=== PATIENT | female | born 1935 | race Caucasian/White ===

== ENCOUNTER 2023-10-28 07:36 | Emergency (ER) | payer MEDICARE ==
[~2023-10-28] VITALS: Ht 162.6 cm; Wt 68.0 kg
[2023-10-28 09:28] LABS: BASOPHILS ABSOLUTE AUTO 0.05 K/mm3 (0.00-0.23); BASOPHILS PERCENT AUTO 0 % (0-2); EOSINOPHILS ABSOLUTE AUTO 0.03 K/mm3 (0.00-0.68); EOSINOPHILS PERCENT AUTO 0 % (0-6); Hematocrit 42.5 % (33.0-51.0); Hemoglobin 14.1 g/dL (11.5-16.0); IMMATURE GRAN ABSOLUTE AUTO 0.09 K/mm3 (0.00-0.10); IMMATURE GRAN PERCENT AUTO 1 % (0-1); LYMPHOCYTES ABSOLUTE AUTO 0.82 K/mm3 (0.84-5.20); LYMPHOCYTES PERCENT AUTO 7 % (21-46); MONOCYTES ABSOLUTE AUTO 0.54 K/mm3 (0.16-1.47); MONOCYTES PERCENT AUTO 5 % (4-13); Mean Corpuscular HGB 32.4 pg (26.0-34.0); Mean Corpuscular HGB Conc 33.2 g/dL (31.5-36.5); Mean Corpuscular Volume 98 fL (80-100); Mean Platelet Volume 10.3 fL (9.1-12.4); NEUTROPHILS ABSOLUTE AUTO 10.58 K/mm3 (1.96-9.15); NEUTROPHILS PERCENT AUTO 87 % (41-73); Platelet Count 265 K/mm3 (150-400); RDW Coefficient Variation 12.3 % (11.7-14.2); RDW Standard Deviation 44.3 fL (35.1-46.3); Red Blood Cell Count 4.35 M/mm3 (3.80-5.20); White Blood Cell Count 12.11 K/mm3 (4.00-11.30)
[2023-10-28 09:59] LABS: Bun/Creatinine Ratio 14.3 (12.0-20.0); Calcium, Blood 8.2 mg/dL (8.5-10.1); Creatinine, Blood 0.77 mg/dL (0.40-1.00); Potassium, Blood 3.9 mmol/L (3.5-5.5)
[2023-10-28 10:02] LABS: Source, Urine Clean Catch
[2023-10-28 10:06] LABS: Appearance, Urine Clear (Clear); Bilirubin, Urine Neg (Neg); Blood, Urine Neg (Neg); Color, Urine Yellow (P-Yellow); Glucose Qualitative, Urine Neg (Neg); Ketones, Urine 1+ (Neg); Leukocyte Esterase, Urine 2+ (Neg); Nitrite, Urine Neg (Neg); Protein, Urine 1+ (Neg); Urobilinogen, Urine NORM (Normal)
[2023-10-28 10:19] LABS: Hyaline Casts 0-2 /lpf (0-2)
[2023-10-28 10:20] LABS: Red Blood Cells, Urine 0-2 /hpf (0-2); Squamous Epithelial Cells Few /hpf (Few); Transitional Epithelial Cells Rare /hpf (0-Rare); White Blood Cells, Urine 0-2 /hpf (0-5)
[2023-10-28 10:33] LABS: Bacteria Many /hpf
[2023-10-29 07:30] VITALS: BP 153/86
== END 2023-10-29 09:57 | disposition home or self-care (01) ==
LOC: ER 07:36
PROVIDERS: Student in an Organized Health Care Education/Training Program
DX: R05.9 Cough, unspecified (principal); M54.50 Low back pain, unspecified; D72.829 Elevated white blood cell count, unspecified; R82.71 Bacteriuria; Z88.6 Allergy status to analgesic agent; Z79.899 Other long term (current) drug therapy; E03.9 Hypothyroidism, unspecified
CPT/HCPCS: 71046; 72100; 72170; 80048; 81001; 85025; 96374; 96375; 99284-25; A9270; J0696; J1100; J3010; J7030

== ENCOUNTER 2023-11-01 06:39 | Emergency (ER) | payer MEDICARE ==
[~2023-11-01] VITALS: Ht 165.1 cm; Wt 65.8 kg
[2023-11-01 07:23] LABS: BASOPHILS ABSOLUTE AUTO 0.01 K/mm3 (0.00-0.23); BASOPHILS PERCENT AUTO 0 % (0-2); EOSINOPHILS ABSOLUTE AUTO 0.02 K/mm3 (0.00-0.68); EOSINOPHILS PERCENT AUTO 0 % (0-6); IMMATURE GRAN ABSOLUTE AUTO 0.02 K/mm3 (0.00-0.10); IMMATURE GRAN PERCENT AUTO 0 % (0-1); LYMPHOCYTES ABSOLUTE AUTO 1.47 K/mm3 (0.84-5.20); LYMPHOCYTES PERCENT AUTO 31 % (21-46); MONOCYTES ABSOLUTE AUTO 0.35 K/mm3 (0.16-1.47); MONOCYTES PERCENT AUTO 7 % (4-13); Mean Corpuscular HGB Conc 31.6 g/dL (31.5-36.5); Mean Corpuscular Volume 104 fL (80-100); Mean Platelet Volume 10.1 fL (9.1-12.4); NEUTROPHILS ABSOLUTE AUTO 2.89 K/mm3 (1.96-9.15); NEUTROPHILS PERCENT AUTO 61 % (41-73); Platelet Count 103 K/mm3 (150-400); RDW Coefficient Variation 12.7 % (11.7-14.2); Red Blood Cell Count 1.82 M/mm3 (3.80-5.20); White Blood Cell Count 4.76 K/mm3 (4.00-11.30)
[2023-11-01 07:50] LABS: Base Excess Venous -9.8 mmol/L; PCO2 Venous 23.7 mmHg (38-42); pH Blood Venous 7.41 (7.34-7.37)
[2023-11-01 08:05] LABS: Calcium, Ionized (POC) 0.89 mmol/L (1.10-1.46); Chloride (POC) 106 mmol/L (98-108); Glucose (ISTAT POC) 164 mg/dL (70-99); Hemoglobin (POC) 11.6 g/dL (12.0-16.0); Potassium (POC) 3.2 mmol/L (3.5-5.5); Sodium (POC) 136 mmol/L (135-148); Total CO2 (POC) 18 mmol/L (21-32)
[2023-11-01 08:13] LABS: Hematocrit 40.8 % (33.0-51.0); Hemoglobin 13.1 g/dL (11.5-16.0)
[2023-11-01 08:34] LABS: International Normalized Ratio 1.19; Prothrombin Time Results 12.4 Sec (9.7-11.5)
[2023-11-01 08:40] LABS: Albumin/Globulin Ratio 0.6 (0.8-1.8); Bilirubin, Total 1.2 mg/dL (0.1-1.0); Bun/Creatinine Ratio 14.7 (12.0-20.0); Calcium, Blood 6.4 mg/dL (8.5-10.1); Creatinine, Blood 1.77 mg/dL (0.40-1.00); Globulin, Blood 3.2 g/dL (2.2-4.0); Potassium, Blood 3.4 mmol/L (3.5-5.5); Total Protein, Blood 5.2 g/dL (6.4-8.2)
[2023-11-01 09:00] LABS: Source, Urine Foley catheter
[2023-11-01 09:09] LABS: Bilirubin, Urine Neg (Neg); Blood, Urine Neg (Neg); Glucose Qualitative, Urine Neg (Neg); Ketones, Urine Neg (Neg); Leukocyte Esterase, Urine Neg (Neg); Nitrite, Urine Neg (Neg); Protein, Urine Neg (Neg); Urobilinogen, Urine NORM (Normal)
[2023-11-01 09:12] LABS: Appearance, Urine Clear (Clear); Color, Urine Yellow (P-Yellow)
[2023-11-01 11:57] LABS: Hematocrit 42.8 % (33.0-51.0); Hemoglobin 14.2 g/dL (11.5-16.0)
--- NOTE | 2023-11-01 12:13 | NUR ---
Initial palliative care consult: Reyna is an 88 year old lady who was brought in by ambulance this morning. She lives with her dtr, Jazmin and son -in-law. Per EMS report, Reyna suddenly slumped in her chair this morning after drinking some water. She was semi-unresponsive and 911 was called. Requested to visit with pt and family in ER. Pt has bilateral PEs and started vomiting coffee-ground type emesis while being evaluated in the ER. Pt is unable to be placed on a heparin gtt due to the guaiac positive emesis. Jazmin, her dtr, and DORIAN are at the bedside. Reyna slept through the visit. Jazmin reports that Reyna has a history of a prior back surgery and she takes a thyroid medication. Jazmin reports no other health history. Jazmin states that Reyna recently moved to the area and is now living with her. Jazmin is tearful. She states "I don't want my mom to suffer, but I don't want to lose her." Pt's DORIAN is also at bedside and states that they would like to have Reyna transferred to a facility who has GI and IR specialties available. Pt's DORIAN is upset by the question of code status and advanced care planning. He said "It's too soon to be talking about this." He then stated that he just recently lost his mom suddenly in the [facility] a few weeks ago. Emotional support provided by this underwriter solicitation director. Jazmin is in agreement with transfer of care to a facility who has the specialty physicians. Jazmin reports that her dtr works in [place] in an endo clinic. She is hopeful that Reyna can be transferred to [place]. Explained to Jazmin and her that staff will contact other facilities to see is anyone can accept her. Explained that this process can take some time and there is no guarantee that she can be accepted in [place]. They verbalized understanding. Jazmin confirmed Reyna's DNR status. Plan at this time is for admission and supportive care while staff contact other facilities for possible transfer. Nursing and Dr. Romero updated on conversation with family. PC to remain available to assist with advanced care planning prn.
[2023-11-01 15:45] VITALS: BP 112/85
[2023-11-01] MEDS ORDERED: LEVSOD75 PO (16:08)
== END 2023-11-01 16:09 | disposition short-term general hospital (02) ==
LOC: ER 06:39
PROVIDERS: Family Medicine; Student in an Organized Health Care Education/Training Program
DX: I26.99 Other pulmonary embolism without acute cor pulmonale (principal); J96.91 Respiratory failure, unspecified with hypoxia; G93.40 Encephalopathy, unspecified; R57.8 Other shock; S32.018A Other fracture of first lumbar vertebra, initial encounter for closed fracture; J44.9 Chronic obstructive pulmonary disease, unspecified; E03.9 Hypothyroidism, unspecified; Z87.891 Personal history of nicotine dependence; W07.XXXA Fall from chair, initial encounter; Y92.009 Unspecified place in unspecified non-institutional (private) residence as the place of occurrence of the external cause; Y93.89 Activity, other specified
CPT/HCPCS: 36415; 36430; 51702; 70450; 71275; 74174; 80047; 80053; 81003; 82272; 82803; 83735; 83880; 84484; 85014; 85018; 85025; 85520; 85610; 85730; 86850; 86900; 86901; 86920; 86923; 93005; 93010; 93306; 96365-59; 96366; 96367; 96368; 96375-59; 96376-59; 99291-25; 99292; C9113; J0612; J2310; J2405; J3010; J3475; J3480; J7030; J7060; P9016; Q9967